=== PATIENT | female | born 1990 | race Caucasian/White ===

== ENCOUNTER → 2017-09-09 | Outpatient (CLI) | payer BC ==
[~2017-09-09] MED LIST: AUGMENTIN 875 M1 TAB PO; CIPROFLOXACIN500 MG PO; CLARITIN10 MG PO; MEDROL DOSEPAK4 MG PO; MOTRIN800 MG PO; MUCINEX600 MG PO; NAPROSYN500 MG PO; NORCO 325 MG-51 TAB PO; PENICILLIN VK500 MG PO; PYRIDIUM200 MG PO; TRAMADOL HCL50 MG PO
== END | disposition home or self-care (01) ==
LOC: LAB 11:15 → US 11:30
DX: O34.80 Maternal care for other abnormalities of pelvic organs, unspecified trimester (principal); O20.9 Hemorrhage in early pregnancy, unspecified; N83.292 Other ovarian cyst, left side; D25.9 Leiomyoma of uterus, unspecified; Z3A.00 Weeks of gestation of pregnancy not specified

== ENCOUNTER → 2017-09-12 | Outpatient (CLI) | payer BC | END | disposition home or self-care (01) | LOC: LAB 10:57 | DX: Z33.1 Pregnant state, incidental (principal) ==

== ENCOUNTER 2017-09-17 18:36 | Emergency (ER) | payer BC ==
[~2017-09-17] VITALS: Wt 65.8 kg
[~2017-09-17 18:36] MED LIST changes: -DICLEGIS DR 101 EACH PO; -PRENATA CHEWAB1 EACH PO; -ROBITUSSIN5 ML PO; -ZITHROMAX250 MG PO
[2017-09-17] MEDS ORDERED: PRENATA CHEWAB1 EACH PO (18:40)
[2017-09-17] MEDS ORDERED: CLARITIN10 MG PO (18:52)
[2017-09-17] MEDS ORDERED: DICLEGIS DR 101 EACH PO (18:52)
[2017-09-17] MEDS ORDERED: ZITHROMAX250 MG PO (18:52)
[2017-09-17] MEDS ORDERED: ROBITUSSIN5 ML PO (18:52)
== END 2017-09-17 19:04 | disposition home or self-care (01) ==
LOC: ED 18:36
DX: O99.511 Diseases of the respiratory system complicating pregnancy, first trimester (principal); J06.9 Acute upper respiratory infection, unspecified; O26.891 Other specified pregnancy related conditions, first trimester; R03.0 Elevated blood-pressure reading, without diagnosis of hypertension; Z88.1 Allergy status to other antibiotic agents; Z79.899 Other long term (current) drug therapy; Z3A.01 Less than 8 weeks gestation of pregnancy

== ENCOUNTER → 2017-09-17 | Outpatient (CLI) | payer BC ==
[~2017-09-17] MED LIST changes: +DICLEGIS DR 101 EACH PO; +PRENATA CHEWAB1 EACH PO; +ROBITUSSIN5 ML PO; +ZITHROMAX250 MG PO
== END | disposition home or self-care (01) ==
LOC: LAB 10:02
DX: Z32.01 Encounter for pregnancy test, result positive (principal)

== ENCOUNTER → 2017-09-23 | Outpatient (CLI) | payer BC ==
[~2017-09-23] MED LIST changes: +DICLEGIS DR 101 EACH PO; +PRENATA CHEWAB1 EACH PO; +ROBITUSSIN5 ML PO; +ZITHROMAX250 MG PO
== END | disposition home or self-care (01) ==
LOC: LAB 08:38
DX: Z32.01 Encounter for pregnancy test, result positive (principal)

== ENCOUNTER → 2017-09-29 | Outpatient (CLI) | payer BC | END | disposition home or self-care (01) | LOC: US 15:58 | DX: O34.81 Maternal care for other abnormalities of pelvic organs, first trimester (principal); D25.9 Leiomyoma of uterus, unspecified; N83.12 Corpus luteum cyst of left ovary; Z3A.01 Less than 8 weeks gestation of pregnancy ==

== ENCOUNTER 2017-12-10 18:15 | Emergency (ER) | payer BC ==
[~2017-12-10] VITALS: Ht 160 cm; Wt 65.8 kg
[~2017-12-10 18:15] MED LIST changes: +REGLAN5 MG PO
[2017-12-10] MEDS ORDERED: TAMIFLU 75MG CA75 MG PO (19:36)
== END 2017-12-10 19:38 | disposition home or self-care (01) ==
LOC: ED 18:15
DX: O99.512 Diseases of the respiratory system complicating pregnancy, second trimester (principal); J09.X2 Influenza due to identified novel influenza A virus with other respiratory manifestations; Z3A.17 17 weeks gestation of pregnancy; Z79.899 Other long term (current) drug therapy; Z88.1 Allergy status to other antibiotic agents

== ENCOUNTER 2018-03-26 16:58 | Emergency (ER) | payer BC ==
[~2018-03-26 16:58] MED LIST changes: +TAMIFLU 75MG CA75 MG PO
[2018-03-26 17:31] LABS: BASO % 0.3 % (0.0-1.0); EOS % 0.3 % (1.0-4.0); HEMATOCRIT 30.6 % (37.0-47.0); HEMOGLOBIN 10.3 g/dl (12.0-16.0); MEAN CORPUSCULAR HGB 28.9 pg (27.0-31.0); MEAN CORPUSCULAR HGB CONC 33.7 g/dl (33.0-37.0); MEAN PLATELET VOLUME 10.4 fl (9.6-12.3); MONO % 8.6 % (3.0-9.0); PLATELET COUNT AUTOMATED 158 10*3/uL (130-400); RED BLOOD COUNT 3.56 10*6/uL (4.10-5.10); RED CELL DISTRI WIDTH 12.8 % (0-14.5); WHITE BLOOD COUNT 11.2 10*3/uL (4.8-10.8)
[2018-03-26 17:46] LABS: ALBUMIN 2.9 gm/dl (3.1-4.5); ALKALINE PHOSPHATASE 123 U/L (45-117); BUN 6 mg/dl (7-24); CHLORIDE 106 mmol/L (98-107); CREATININE 0.46 mg/dL (0.55-1.02); POTASSIUM 3.7 mmol/L (3.5-5.1); SGOT/AST 13 IU/L (3-35); SGPT/ALT 15 U/L (12-78); SODIUM 138 mmol/L (136-145); TOTAL PROTEIN 6.8 gm/dL (6.4-8.2)
[2018-03-26] MEDS ORDERED: NYSTATIN CREAM15 GM T (18:12)
== END 2018-03-26 18:18 | disposition home or self-care (01) ==
LOC: ED 16:58
PROVIDERS: Nurse Practitioner Family
DX: O99.713 Diseases of the skin and subcutaneous tissue complicating pregnancy, third trimester (principal); L03.115 Cellulitis of right lower limb; R03.0 Elevated blood-pressure reading, without diagnosis of hypertension; Z3A.32 32 weeks gestation of pregnancy; Z88.8 Allergy status to other drugs, medicaments and biological substances; Z79.899 Other long term (current) drug therapy

== ENCOUNTER → 2019-07-15 | Outpatient (CLI) | payer BC, OTHER ==
[~2019-07-15] MED LIST changes: +NYSTATIN CREAM15 GM T
== END | disposition home or self-care (01) ==
LOC: US 07-07 14:00
DX: Z34.81 Encounter for supervision of other normal pregnancy, first trimester (principal); Z3A.10 10 weeks gestation of pregnancy

== ENCOUNTER → 2019-09-23 | Outpatient (CLI) | payer OTHER | END | disposition home or self-care (01) | LOC: US 16:00 | DX: Z34.82 Encounter for supervision of other normal pregnancy, second trimester (principal); Z3A.20 20 weeks gestation of pregnancy ==

== ENCOUNTER → 2019-10-28 | Outpatient (CLI) | payer OTHER | END | disposition home or self-care (01) | LOC: LAB 08:17 | DX: Z34.92 Encounter for supervision of normal pregnancy, unspecified, second trimester (principal); Z3A.25 25 weeks gestation of pregnancy ==

== ENCOUNTER → 2019-12-02 | Outpatient (CLI) | payer OTHER | END | disposition home or self-care (01) | LOC: US 16:00 | DX: Z34.83 Encounter for supervision of other normal pregnancy, third trimester (principal); Z3A.30 30 weeks gestation of pregnancy ==

== ENCOUNTER 2024-02-14 16:59 | Emergency (ER) | payer BC ==
[~2024-02-14] VITALS: Ht 160 cm; Wt 86.2 kg
[2024-02-14] MEDS ORDERED: FLUORESCEIN SODIUM 1 MG STRIP OPH ONE (17:15)
[2024-02-14] MEDS ORDERED: CIPROFLOXACIN H10 ML OPH (17:20)
== END 2024-02-14 17:22 | disposition home or self-care (01) ==
LOC: ED 16:59
DX: S05.01XA Injury of conjunctiva and corneal abrasion without foreign body, right eye, initial encounter (principal); H53.8 Other visual disturbances; Z88.1 Allergy status to other antibiotic agents; W22.8XXA Striking against or struck by other objects, initial encounter; Y93.89 Activity, other specified; Y92.89 Other specified places as the place of occurrence of the external cause; Y99.8 Other external cause status